=== PATIENT | male | born 1940 | race Caucasian/White ===

== ENCOUNTER 2016-08-09 17:14 | Emergency (ER) | payer MEDICARE ==
[~2016-08-09 17:14] MED LIST: ACTOS30 MG; ACTOS45 MG PO; ADVAIR; ADVAIR 50028 BLISTE1 PO; ADVAIR 50028 BLISTER INH; ALBUTEROL I0.5 ML/EA AERO NEB; ALBUTEROL SULF8.5 GM IH; ALPRAZOLAM PO; ALPRAZOLAM0.5 M2 PO; ALPRAZOLAM0.5 MG; AMLODIPINE BES2.5 MG PO; CHLORZOXAZONE500 MG; CHLORZOXAZONE500 MG PO; COLACE100 MG PO; COMBIVENT INH14.7 GM; COMBIVENT1 PUFF INH; DALIRESP500 MC1 PO; DARVOCET; DELTASONE10 MG PO; DITROPAN XL5 M3 PO; DOXAZOSIN MESYLA4 MG; DOXAZOSIN MESYLA4 MG PO; DULCOLAX5 MG PO; ENABLEX7.5 MG PO; FINASTERIDE5 MG PO; FLOMAX0.4 M1 PO; FLOMAX0.4 MG; FLOMAX0.4 MG PO; FUROSEMIDE20 M1 PO; FUROSEMIDE20 MG; GLIPIZIDE ER5 MG PO; GLYBURIDE MICR1.5 MG; GLYBURIDE MICRON3 MG; GLYCRON3 MG PO; GLYNASE1.5 MG PO; GLYNASE3 MG PO; IPRAT-ALBUT 0.5-3 ML PO; LASIX PO; LASIX20 MG PO; LEVEMIR100 UNITS/ SC; LIPITOR10 MG; LIPITOR10 MG PO; LISINOPRIL10 M1 PO; LISINOPRIL40 MG; MELOXICAM15 M1 PO; METFORMIN HCL500 MG PO; METFORMIN PO; MICRO-K 1010 MEQ; MICRO-K10 MEQ PO; MILK OF MA400 MG/5 M PO; MIRALAX17 G1 PO; MUCINEX D ER T1 EAC1 PO; MUCINEX100 MG PO; NEURONTIN300 M1 PO; NEURONTIN300 MG PO; NEXIUM40 MG; NORVASC5 MG PO; NOVOLOG100 UNIT/1 SQ; NOVOLOG100 UNIT/2 SC; OMEPRAZOLE20 M1 PO; OMEPRAZOLE20 M3 PO; PREDNISONE20 MG PO; PROPOXY-N-APAP1 TAB; PROTONIX40 M1 PO; QUININE SULFAT260 MG; SPIRIVA18 MC1 PO; SPIRIVA18 MCG IH; TAMSULOSIN HCL0.4 MG PO; THERMOTABS TAB1 EACH PO; TRAMADOL-ACETA1 EACH PO; TUMS500 M1 PO; VIBRAMYCIN100 MG PO; ZESTRIL40 MG PO
[2016-08-09] MEDS ORDERED: PROSCAR5 M1 PO (18:09)
[2016-08-09] MEDS ORDERED: MOBIC15 M2 PO (18:09)
[2016-08-09] MEDS ORDERED: FLOMAX0.4 M1 PO (18:10)
[2016-08-09] MEDS ORDERED: ADVAIR 50028 BLISTE1 PO (18:10)
[2016-08-09] MEDS ORDERED: ALBUTEROL2.5 MG/3 M INH (18:10)
[2016-08-09] MEDS ORDERED: SPIRIVA18 MC1 INH (18:11)
[2016-08-09] MEDS ORDERED: DALIRESP500 MC1 PO (18:11)
[2016-08-09] MEDS ORDERED: MUCINEX600 M1 PO (18:11)
[2016-08-09] MEDS ORDERED: VENTOLIN HFA18 G2 INH (18:12)
[2016-08-09] MEDS ORDERED: COLACE100 M1 PO (18:12)
[2016-08-09] MEDS ORDERED: MIRALAX17 G2 PO (18:12)
[2016-08-09] MEDS ORDERED: OXYBUTYNIN CHLOR5 M2 PO (18:13)
[2016-08-09] MEDS ORDERED: OMEPRAZOLE20 M3 PO (18:13)
[2016-08-09] MEDS ORDERED: TRIAMCINOLONE A15 G2 TP ×2 (18:13→18:54)
[2016-08-09] MEDS ORDERED: MAGNESIUM OXID400 M1 PO (18:14)
[2016-08-09] MEDS ORDERED: ZOCOR20 M1 PO (18:14)
[2016-08-09] MEDS ORDERED: NEURONTIN300 M1 PO (18:14)
[2016-08-09] MEDS ORDERED: LASIX20 M1 PO (18:14)
[2016-08-09] MEDS ORDERED: CARDURA4 M1 PO (18:14)
[2016-08-09] MEDS ORDERED: PRINIVIL10 M1 PO (18:15)
[2016-08-09] MEDS ORDERED: GLUCOTROL XL5 M1 PO (18:15)
[2016-08-09] MEDS ORDERED: TRAMADOL-ACETA1 EAC1 PO (18:15)
[2016-08-09] MEDS ORDERED: NOVOLOG FL100 UNIT/2 SC ×2 (18:16→18:18)
[2016-08-09] MEDS ORDERED: LEVEMIR FL100 UNIT/2 SC (18:16)
[2016-08-09 18:19] LABS: BASO % 0.2 % (0-2); EOS % 0.4 % (0-7); EOSINOPHIL ABSOLUTE COUNT 0.1 tho/cmm (0.0-0.7); HCT-HEMATOCRIT 38.2 % (36.0-53.5); HGB-HEMOGLOBIN 12.4 gm/dl (13.5-17.0); IMMATURE GRANULOCYTES ABSOLUTE 0.03 tho/cmm (0-0.03); IMMATURE GRANULOCYTES PERCENT 0.3 % (0-0.3); LYMPH % 10.2 % (20-45); LYMPH ABSOLUTE COUNT 1.2 tho/cmm (0.8-4.5); MCH (MEAN CORPUSCULAR HGB) 28.7 pg (28.0-32.0); MCHC MEAN CORPUSCULAR HGB CONC 32.5 % (32.0-36.0); MCV (MEAN CELL VOLUME) 88.4 fl (82.0-96.0); MEAN PLATELET VOLUME 11.8 cmc (9.4-12.4); MONO % 5.5 % (0-12); MONOCYTE ABSOLUTE COUNT 0.6 tho/cmm (0.0-1.2); NEUTROPHIL ABSOLUTE COUNT 9.7 tho/cmm (1.6-8.0); NEUTROPHIL-AUTOMATED 9.7 tho/cmm (1.6-8.0); NEUTROPHILS % 83.4 % (40-80); PLATELET COUNT 206 tho/cmm (150-450); RED BLOOD COUNT 4.32 mil/cmm (4.40-5.70); RED CELL DISTRIBUTION WIDTH 17.5 % (12.4-16.4); WHITE BLOOD COUNT 11.6 tho/cmm (4.0-10.0)
[2016-08-09 18:34] LABS: ANION GAP 11 mmol/L (0-20); BLOOD UREA NITROGEN 15 mg/dl (6-24); CALCIUM 9.3 mg/dl (8.5-10.5); CARBON DIOXIDE-VENOUS 30 mmol/L (22-32); CHLORIDE 105 mmol/l (96-110); CREATININE 0.91 mg/dl (0.60-1.30); GLUCOSE 99 mg/dL (70-110); POTASSIUM 4.7 mmol/L (3.7-5.1); SODIUM 141 mmol/L (135-145); eGFR VALUE FOR BLACK >90 mL/Min
[2016-08-09 18:36] LABS: URINE BILIRUBIN NEGATIVE (NEG); URINE BLOOD NEGATIVE (NEG); URINE GLUCOSE (UA) NEGATIVE (NEG); URINE KETONE NEGATIVE (NEG); URINE LEUKOCYTE ESTERASE NEGATIVE (NEG); URINE NITRITE NEGATIVE (NEG); URINE PROTEIN NEGATIVE (NEG); URINE SPECIFIC GRAVITY 1.015 (1.003-1.030)
[2016-08-09 18:40] LABS: URINE APPEARANCE CLEAR; URINE COLOR YELLOW
[2016-08-09] MEDS ORDERED: TYLENOL EXTRA500 M1 PO (18:45)
[2016-08-09] MEDS ORDERED: VITAMIN D31000 UNI3 PO (18:45)
[2016-08-09] MEDS ORDERED: VITAMIN C500 M3 PO (18:45)
[2016-08-09] MEDS ORDERED: CENTRUM SILVER1 EAC3 PO (18:45)
[2016-08-09 18:49] LABS: CREATINE PHOSPHOKINASE (CPK) 206 U/L (35-232)
[2016-08-09] MEDS ORDERED: VANICREAM453 GM TP (18:53)
[2016-08-09] MEDS ORDERED: AMLACTIN57 GM TP (18:54)
[2016-08-09] MEDS ORDERED: SSD25 GM TP (18:55)
[2016-08-09] MEDS ORDERED: NYSTOP60 GM EXT (18:55)
[2016-11-17] MEDS ORDERED: [UNRECOGNIZED DRUG - OTHER] (12:13)
== END 2016-08-09 20:00 ==
LOC: EDMED 17:14
PROVIDERS: Emergency Medicine
DX: E11.649 Type 2 diabetes mellitus with hypoglycemia without coma (principal); T38.3X5A Adverse effect of insulin and oral hypoglycemic [antidiabetic] drugs, initial encounter; Z79.4 Long term (current) use of insulin; J44.9 Chronic obstructive pulmonary disease, unspecified; Z87.891 Personal history of nicotine dependence; Z79.51 Long term (current) use of inhaled steroids